=== PATIENT | male | born 1990 ===

== ENCOUNTER 2022-04-19 07:03 | Emergency (ER) | payer OTHER ==
[~2022-04-19] VITALS: Ht 172.7 cm; Wt 108.0 kg
[2022-04-19] MEDS ORDERED: Robaxin750 MG PO (08:42)
== END 2022-04-19 09:18 | disposition home or self-care (01) ==
LOC: ER 07:03
DX: M62.830 Muscle spasm of back (principal); S29.012A Strain of muscle and tendon of back wall of thorax, initial encounter; X58.XXXA Exposure to other specified factors, initial encounter; Z87.891 Personal history of nicotine dependence
CPT/HCPCS: 20552; 96372; 99283-25; A9270; J1885